=== PATIENT | female | born 1990 | race Caucasian/White ===

== ENCOUNTER → 2018-01-16 | Outpatient (CLI) | payer OTHER | LOC: BRMIMAGING 11:04 | PROVIDERS: ATTEND Internal Medicine | DX: S97.81XA Crushing injury of right foot, initial encounter (principal); M25.571 Pain in right ankle and joints of right foot | CPT/HCPCS: 73610-PO; 73630-PO ==

== ENCOUNTER → 2018-01-26 | Outpatient (CLI) | payer OTHER | LOC: BRMIMAGING 08:37 | PROVIDERS: ATTEND Internal Medicine | DX: S90.111A Contusion of right great toe without damage to nail, initial encounter (principal) | CPT/HCPCS: 73660-PO ==